=== PATIENT | female | born 1990 | race Caucasian/White ===

== ENCOUNTER 2017-09-01 19:53 | Inpatient (IN) | payer OTHER ==
[~2017-09-01] VITALS: Ht 167.6 cm; Wt 78.0 kg
[~2017-09-01 19:53] MED LIST: AMOX875T3 PO; IBUP1CAP PO; LEVO88TA3 PO; MELA3TAB PO
[2017-09-01 21:02] LABS: HEMATOCRIT 38.2 % (37-47); HEMOGLOBIN 13.5 g/dL (12.0-16.0); MEAN CELL VOLUME 90.1 fL (80-100); MEAN CORPUSCULAR HEMOGLOBIN 31.8 pg (25-34); MEAN CORPUSCULAR HGB CONC 35.3 g/dl (32-36); MEAN PLATELET VOLUME 10.3 fL (7.4-10.4); PLATELET COUNT 204 K/uL (130-400); RED CELL DISTRIBUTION WIDTH CV 13.3 % (11.5-14.5); RED CELL DISTRIBUTION WIDTH SD 43.7 fL (36.4-46.3); WHITE BLOOD COUNT 11.66 K/uL (4.8-10.8)
[2017-09-01] MEDS ORDERED: MISOPROSTOLTAB 50 MCG TAB PO ONE (21:15)
[2017-09-01] MEDS ORDERED: PRENTAB26 PO (21:45)
[2017-09-01 21:47] VITALS: Ht 167.6 cm; Wt 78.0 kg
[2017-09-02] MEDS ORDERED: NURSING VERBAL MED ORDER ONE ×4 (00:30→13:15)
[2017-09-02] MEDS ORDERED: LACTATED RINGER'S 1000ML 1,000 ML IV SCH ×2 (01:00)
[2017-09-02] MEDS: BUTORPHANOL TARTRATE 1 MG/ML VIAL IV PRN ×2 (02:37→03:50)
[2017-09-02] MEDS ORDERED: OXYTOCIN 30 UNITS/500ML NSS IV ONE (03:04)
[2017-09-02] MEDS ORDERED: BUTORPHANOL TARTRATE 1 MG/ML VIAL ONE (05:10)
[2017-09-02] MEDS: LEVOTHYROXINE 125 MCG TAB PO SCH (05:23)
[2017-09-02] MEDS ORDERED: METHYLERGONOVINE MALEATE 0.2 MG/ML AMP ONE (10:04)
[2017-09-02] MEDS ORDERED: DIPHTHERIA/TETANUS/PERTUSSIS 0.5 ML SYR/VIAL IM. ONE (10:30)
[2017-09-02] MEDS ORDERED: OXYCODONE/ACETAMINOPHEN 5-325 TAB PO PRN (10:30)
[2017-09-02] MEDS ORDERED: ACETAMINOPHEN/CODEINE 300/30MG TAB PO PRN ×2 (10:30)
[2017-09-02] MEDS ORDERED: METHYLERGONOVINE MALEATE 0.2 MG/ML AMP IM ONE (10:30)
[2017-09-02] MEDS ORDERED: LANOLIN OINT EXT PRN (10:30)
[2017-09-02] MEDS ORDERED: OXYTOCIN INJ 10 UNITS/ML VIAL IM ONE (10:30)
[2017-09-02] MEDS ORDERED: BENZOCAINE 20% AER SPR 82.5 GM CAN EXT PRN (10:30)
[2017-09-02] MEDS ORDERED: ACETAMINOPHEN 325 MG TAB PO PRN (10:30)
[2017-09-02] MEDS ORDERED: SUPERCREAM 0.870 % 15GM JAR EXT PRN (10:30)
[2017-09-02] MEDS ORDERED: HYDROCORTISONE ACETATE 25 MG SUPP PR PRN (10:30)
[2017-09-02] MEDS: IBUPROFEN 600 MG TAB PO PRN (11:25)
[2017-09-02 12:50] VITALS: BP 110/62; PULSE 64; TEMP 36.5
[2017-09-02 15:30] VITALS: BP 107/72; PULSE 69; TEMP 37.1
[2017-09-02 20:05] VITALS: BP 95/57; PULSE 67; TEMP 37
[2017-09-02] MEDS: DOCUSATE SODIUM 100 MG CAP PO SCH (20:17)
[2017-09-03 00:10] VITALS: BP 95/59; PULSE 71; TEMP 37.2
[2017-09-03] MEDS: IBUPROFEN 600 MG TAB PO PRN ×4 (02:21→23:55)
[2017-09-03 04:10] VITALS: BP 89/52; PULSE 65; TEMP 37
[2017-09-03] MEDS: LEVOTHYROXINE 125 MCG TAB PO SCH (04:23)
[2017-09-03 06:01] LABS: HEMATOCRIT 33.9 % (37-47); HEMOGLOBIN 11.7 g/dL (12.0-16.0)
[2017-09-03 08:01] VITALS: BP 97/58; PULSE 64; TEMP 36.7; O2SAT 97
[2017-09-03] MEDS: PRENATAL VITAMIN TAB PO SCH (08:52)
[2017-09-03] MEDS: FERROUS SULFATE 325 MG TAB PO SCH (08:53)
[2017-09-03] MEDS: DOCUSATE SODIUM 100 MG CAP PO SCH ×2 (08:58→20:22)
[2017-09-03 11:01] VITALS: BP 101/68; PULSE 64; TEMP 36.6; O2SAT 95
--- NOTE | 2017-09-03 13:07 | Progress Note ---
Subjective Sep 03, 2017. Subjective conversation w/ patient Ambulation: ambulating normally Voiding: no voiding problems Passing Gas: Yes Diet Tolerance: Regular Diet Lochia: Small Feeding Type: Breast Feeding Review of Systems Constitutional: + fever Objective Vital Signs Date Time Temp Pulse Resp B/P (MAP) Pulse Ox O2 Delivery O2 Flow Rate FiO2 09/03/17 11:01 36.6 64 16 101/68 (79) 95 Room Air 09/03/17 08:01 36.7 64 14 97/58 (71) 97 Room Air 09/03/17 07:20 Room Air 09/03/17 04:10 37.0 65 16 89/52 (64) Room Air 09/03/17 00:10 Room Air 09/03/17 00:10 37.2 71 16 95/59 (71) Room Air 09/02/17 20:05 37.0 67 18 95/57 (70) Room Air 09/02/17 15:30 Room Air 09/02/17 15:30 37.1 69 20 107/72 (84) Room Air Physical Exam General Appearance: WELL-APPEARING Fundus: Firm, Non-Tender Extremities: no pedal edema, no calf tenderness Laboratory Results Last 24 Hours Test 09/03/17 05:38 Hemoglobin 11.7 g/dL Hematocrit 33.9 % Assessment and Plan Problem List Medical Problems: (1) Acute headache Status: Acute (2) Hypothyroidism Status: Chronic (3) Left otitis media Status: Acute Post- Day#: 1
[2017-09-03 15:30] VITALS: BP 100/64; PULSE 68; TEMP 37.2
[2017-09-03] MEDS ORDERED: BISACODYL 5 MG TABEC PO SCH (20:00)
[2017-09-03 23:45] VITALS: BP 107/73; PULSE 62; TEMP 36.9
[2017-09-04] MEDS: LEVOTHYROXINE 125 MCG TAB PO SCH (03:57)
[2017-09-04] MEDS ORDERED: BISACODYL 10 MG SUPP PR PRN (07:00)
[2017-09-04 08:00] VITALS: BP 108/73; PULSE 79; TEMP 36.9
[2017-09-04] MEDS: DOCUSATE SODIUM 100 MG CAP PO SCH (08:16)
[2017-09-04] MEDS: FERROUS SULFATE 325 MG TAB PO SCH (08:17)
[2017-09-04] MEDS: PRENATAL VITAMIN TAB PO SCH (08:17)
--- NOTE | 2017-09-04 09:09 | Progress Note ---
Subjective Sep 04, 2017. Subjective conversation w/ patient Ambulation: ambulating normally Voiding: no voiding problems Passing Gas: Yes Diet Tolerance: Regular Diet Lochia: Small Feeding Type: Breast Feeding Review of Systems Constitutional: + fever Objective Vital Signs Date Time Temp Pulse Resp B/P (MAP) Pulse Ox O2 Delivery O2 Flow Rate FiO2 09/04/17 08:10 Room Air 09/04/17 08:00 36.9 79 20 108/73 (85) Room Air 09/03/17 23:45 Room Air 09/03/17 23:45 36.9 62 20 107/73 (84) Room Air 09/03/17 15:30 Room Air 09/03/17 15:30 37.2 68 20 100/64 (76) Room Air 09/03/17 11:01 36.6 64 16 101/68 (79) 95 Room Air Physical Exam General Appearance: WELL-APPEARING Abdomen: non tender Fundus: Firm, Non-Tender Extremities: no pedal edema, no calf tenderness Assessment and Plan Problem List Medical Problems: (1) Acute headache Status: Acute (2) Hypothyroidism Status: Chronic (3) Left otitis media Status: Acute Post- Day#: 2
--- NOTE | 2017-09-04 09:11 | Discharge Instructions ---
Discharge Instructions Date of Service Sep 04, 2017. Admission Reason for Admission: Check Rupture Of Membranes Discharge Discharge Diagnosis / Problem: ruptured membranes Discharge Goals Goal(s): Routine recovery after delivery Activity Recommendations Activity Limitations: as noted below ACTIVITY RECOMMENDATIONS: * Gradual return to full activity over the next 2-3 weeks. * No lifting - nothing heavier than baby over the next 2-3 weeks. * Do not engage in vigorous exercise, sexual activity or sports until cleared by your physician. * Do not drive or operate any motorized equipment until cleared by your physician. * You may shower/bathe daily. DIET: Resume Previous Diet If Breast-feeding: * Increase caloric intake by 500 calories, eat 3 well balanced meals, 2 high protein snacks a day and drink 6-8 8oz. glasses of fluid per day. BREAST CARE: If you are not breast feeding: * Wear a supportive bra 24 hours a day for one to two weeks. * Avoid stimulating your breasts and nipples as much as possible during the first few weeks after delivery. * When taking a shower, have the warm water hit your back, not breasts. * When your breasts feel full, apply ice packs. Usually three to four times a day helps ease the discomfort. * Take a mild pain medication (Tylenol / Motrin) when you are uncomfortable. If breast feeding: * Use breast milk to lubricate nipples. Lansinoh cream may be used for sore nipples. You do not need to remove cream prior to breast feeding. If using a different brand of cream, check the label for directions regarding removal of cream prior to nursing. * Wear a supportive bra. * If having problems with breasts or breast feeding, call a learning consultant or your health care provider. OVER THE COUNTER MEDICATION: * For discomfort or pain, you may use Acetaminophen (Tylenol), Ibuprofen (Advil ), or Naproxen (Aleve) following the package directions. * For constipation you may use Colace following the package directions. SPECIAL CARE INSTRUCTIONS: * Vaginal rest (no tampons, douching, intercourse) until after doctor 's visit. * control as discussed with doctor. * Verbalizes understanding of car seat law as reviewed with patient nursing. * Car Seat hand-out given and reviewed with patient by nursing. * Shaken baby information reviewed with patient by nursing. Call you doctor if: * Temperature greater than or equal to 100.4 degrees F or 38.0 degrees C. Take your temperature twice daily for a week. * Bleeding becomes heavier than the heaviest part of your period - saturating a sanitary pad within an hour. * Passing large clots. * Bleeding has a foul smelling odor. * Signs and symptoms of phlebitis: leg pain, warm, red or swollen area on leg. * "Baby Blues" lasting longer than two weeks. ++ If you have had a and incision has increased pain, redness, swelling, presence of any drainage, or if the incision starts to open up. If you have any questions or concerns, call your health care practitioner at [phone]. FOLLOW-UP VISIT: Please call the office at to schedule a 6 week examination. . Current Hospital Diet ACTIVITY RECOMMENDATIONS: * Gradual return to full activity over the next 2-3 weeks. * No lifting - nothing heavier than baby over the next 2-3 weeks. * Do not engage in vigorous exercise, sexual activity or sports until cleared by your physician. * Do not drive or operate any motorized equipment until cleared by your physician. * You may shower/bathe daily. DIET: Resume Previous Diet If Breast-feeding: * Increase caloric intake by 500 calories, eat 3 well balanced meals, 2 high protein snacks a day and drink 6-8 8oz. glasses of fluid per day. BREAST CARE: If you are not breast feeding: * Wear a supportive bra 24 hours a day for one to two weeks. * Avoid stimulating your breasts and nipples as much as possible during the first few weeks after delivery. * When taking a shower, have the warm water hit your back, not breasts. * When your breasts feel full, apply ice packs. Usually three to four times a day helps ease the discomfort. * Take a mild pain medication (Tylenol / Motrin) when you are uncomfortable. If breast feeding: * Use breast milk to lubricate nipples. Lansinoh cream may be used for sore nipples. You do not need to remove cream prior to breast feeding. If using a different brand of cream, check the label for directions regarding removal of cream prior to nursing. * Wear a supportive bra. * If having problems with breasts or breast feeding, call a learning consultant or your health care provider. OVER THE COUNTER MEDICATION: * For discomfort or pain, you may use Acetaminophen (Tylenol), Ibuprofen (Advil ), or Naproxen (Aleve) following the package directions. * For constipation you may use Colace following the package directions. SPECIAL CARE INSTRUCTIONS: * Vaginal rest (no tampons, douching, intercourse) until after doctor 's visit. * control as discussed with doctor. * Verbalizes understanding of car seat law as reviewed with patient nursing. * Car Seat hand-out given and reviewed with patient by nursing. * Shaken baby information reviewed with patient by nursing. Call you doctor if: * Temperature greater than or equal to 100.4 degrees F or 38.0 degrees C. Take your temperature twice daily for a week. * Bleeding becomes heavier than the heaviest part of your period - saturating a sanitary pad within an hour. * Passing large clots. * Bleeding has a foul smelling odor. * Signs and symptoms of phlebitis: leg pain, warm, red or swollen area on leg. * "Baby Blues" lasting longer than two weeks. ++ If you have had a and incision has increased pain, redness, swelling, presence of any drainage, or if the incision starts to open up. If you have any questions or concerns, call your health care practitioner at [phone]. FOLLOW-UP VISIT: Please call the office at to schedule a 6 week examination. Patient's current hospital diet: Regular Diet Discharge Diet Recommended Diet: Regular Diet Pending Studies Studies pending at discharge: no Medical Emergencies . Who to Call and When: Medical Emergencies: If at any time you feel your situation is an emergency, please call 911 immediately. . Non-Emergent Contact Non-Emergency issues call your: Replenisher Call Non-Emergent contact if: temperature is above 100.5 . . "Provider Documentation" section prepared by Akhil Brooks. . VTE Core Measure Inpt VTE Proph given/why not?: Treatment not indicated
[2017-09-04 11:00] VITALS: BP_DIAS 73; PULSE 79; TEMP 36.9
[2017-09-04] MEDS: IBUPROFEN 600 MG TAB PO PRN (11:41)
== END 2017-09-04 13:05 | disposition home or self-care (01) | DRG 775 ==
LOC: C.OPB 19:53 → C.LD 19:53 → C.OPB 20:41 → C.LD 20:41 → C.OBG 09-02 12:48
PROVIDERS: ADMIT Obstetrics & Gynecology; ATTEND Obstetrics & Gynecology
PROC: 0KQM0ZZ Repair Perineum Muscle, Open Approach (ICD-10-PCS; principal; 2017-09-02)
PROC: 10E0XZZ Delivery of Products of Conception, External Approach (ICD-10-PCS; principal; 2017-09-02)
DX: O99.283 Endocrine, nutritional and metabolic diseases complicating pregnancy, third trimester (principal); O70.1 Second degree perineal laceration during delivery; E03.9 Hypothyroidism, unspecified; Z37.0 Single live birth; Z3A.40 40 weeks gestation of pregnancy

== ENCOUNTER 2020-01-11 00:54 | Inpatient (IN) ==
--- OUTSIDE RECORDS SUMMARY | 2020-01-11 00:57 | External Medical Summary | Continuity of Care Document ---
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 Start: 09-Nov-2017 Refills: 0 Levothyroxine Sodium 100 MCG Oral Tablet; 100 mcg daily Veronica Wray Start: 09-Nov-2017 Quantity: 90 Refills: 3 Procedures Procedures not documented Immunizations Immunizations not documented Family History Mother Family history of hypertension (V17.49) (Z82.49) Status: Act elroy Family history of hyperlipidemia (V18.19) (Z83.438) Status: Active Grandmother Family history of hypertension (V17.49) (Z82.49) Status: Act elroy Father Family history of type C viral hepatitis (V18.8) (Z83.1) Sta tus: Active aunt Family history of cystic fibrosis (V18.19) (Z83.49) Status: Active Family history of Justin thyroiditis (V18.19) (Z83.49) St atus: Active Social History - Smoking Status Never smoked tobacco Plan of Treatment Planned Observations Planned Goals not documented Results No Known Results Results not documented
[2020-01-11] MEDS ORDERED: LACTATED RINGER'S 1,000 ML IV PRN (01:45)
[2020-01-11] MEDS ORDERED: OXYTOCIN 30 UNITS/500 ML BAG IV PRN ×2 (01:45→05:08)
[2020-01-11 02:04] LABS: Hematocrit (blood only) 37.1 % (37-47); Hemoglobin 12.6 g/dL (12.0-16.0); Mean Corpuscular Hemoglobin 30.6 pg (25-34); Mean Platelet Volume 10.2 fL (7.4-10.4); Platelet Count 165 K/uL (130-400); RDW Coefficient of Variation 13.7 % (11.5-14.5); RDW Standard Deviation 44.6 fL (36.4-46.3); Red Blood Count 4.12 M/uL (4.2-5.4); White Blood Count 11.06 K/uL (4.8-10.8)
[2020-01-11] MEDS ORDERED: BUTORPHANOL TARTRATE 1 MG/ML VIAL IV ONE (02:46)
[2020-01-11] MEDS ORDERED: BUTORPHANOL TARTRATE 1 MG/ML VIAL ONE (02:48)
[2020-01-11] MEDS ORDERED: BUTORPHANOL TARTRATE 1 MG/ML VIAL IV STA (04:14)
[2020-01-11] MEDS ORDERED: LIDOCAINE/EPINEPHRINE 1% 20 ML VIAL ONE (04:45)
[2020-01-11] MEDS ORDERED: METHYLERGONOVINE MALEATE 0.2 MG/ML AMP ONE (05:05)
[2020-01-11] MEDS ORDERED: ACETAMINOPHEN W/CODEINE #3 1 TAB PO PRN (05:08)
[2020-01-11] MEDS ORDERED: METHYLERGONOVINE MALEATE 0.2 MG/ML AMP IM ONE (05:08)
[2020-01-11] MEDS ORDERED: ACETAMINOPHEN 325 MG TAB PO PRN (05:08)
[2020-01-11] MEDS ORDERED: SUPERCREAM 0.870% 15 GM JAR EXT PRN (05:08)
[2020-01-11] MEDS ORDERED: DIPHTHERIA/TETANUS/PERTUSSIS 0.5 ML SYR/VIAL IM ONE (05:08)
[2020-01-11] MEDS ORDERED: BENZOCAINE 20% AER SPR 82.5 GM CAN EXT PRN (05:08)
[2020-01-11] MEDS ORDERED: HYDROCORTISONE ACETATE 25 MG SUPP PR PRN (05:08)
[2020-01-11] MEDS ORDERED: OXYCODONE/ACETAMINOPHEN 5mg/325mg TAB PO PRN (05:08)
[2020-01-11] MEDS ORDERED: bisacodyL 10 MG SUPP PR PRN (05:08)
--- NOTE | 2020-01-11 06:09 | Operative Report (OR) ---
DATE OF OPERATION: 01/11/2020 DELIVERY NOTE She is a 1, para 2, 1 first trimester spontaneous AB, blood type is A positive, group B strep negative. She was admitted at 40 weeks 6 days. She was scheduled to come in for induction, but her membranes ruptured at home. She came in, she had a spontaneous unstimulated labor and pushed out a live via direct occiput anterior position over an intact perineum. She did receive 2 doses of Stadol 1 mg each time for pain control. After delivery of the head, infant was suctioned through the mouth and the nose. Shoulders were delivered without difficulty. Cord was allowed to pulse for 1 minute, then it was clamped and cut. Cord blood was taken. She had a second-degree laceration in the midline clitoral laceration. The clitoral area was infiltrated with local, then the perineum was infiltrated with local. Vaginal mucosa was approximated out to beyond the hymenal ring with a running 2-0 Vicryl. A deep suture of 2-0 Vicryl was used to approximate the bulbocavernosus muscle, separate deep suture was used to approximate the perineal body. Then a running subcuticular suture was used to approximate the perineal skin edges. Following this, additional local was placed in the periclitoral area, this was local with epinephrine and we were able to use a 3-[address] one mattress suture that sutured the defect in the midline and stopped the bleeding. Following this, hemostasis was good. I did massage the uterus, clean out a bunch of clots, then I did give her an additional IM Methergine 0.2. Uterus contracted nicely. Hemostasis was good. The patient tolerated the procedure well and left the delivery room in good condition. I attest to the content of the Intraoperative Record and any orders documented therein. Any exception s are noted below.
[2020-01-11] MEDS: LEVOTHYROXINE SODIUM 100 MCG TABLET PO SCH (06:31)
[2020-01-11] MEDS: IBUPROFEN 600 MG TAB PO PRN ×3 (08:29→20:59)
[2020-01-11] MEDS: DOCUSATE SODIUM 100 MG CAP PO SCH ×2 (08:29→20:58)
[2020-01-11] MEDS: PRENATAL VITAMIN 1 TAB PO SCH (08:29)
[2020-01-12] MEDS: IBUPROFEN 600 MG TAB PO PRN ×2 (05:59→11:59)
[2020-01-12] MEDS: LEVOTHYROXINE SODIUM 100 MCG TABLET PO SCH (05:59)
[2020-01-12 06:54] LABS: Hematocrit (blood only) 33.7 % (37-47); Hemoglobin 11.6 g/dL (12.0-16.0); Mean Corpuscular Hemoglobin 31.7 pg (25-34); Mean Corpuscular Hgb Conc 34.4 g/dL (32-36); Mean Corpuscular Volume 92.1 fL (80-100); Mean Platelet Volume 10.1 fL (7.4-10.4); Platelet Count 163 K/uL (130-400); RDW Coefficient of Variation 13.9 % (11.5-14.5); RDW Standard Deviation 46.5 fL (36.4-46.3); Red Blood Count 3.66 M/uL (4.2-5.4); White Blood Count 13.16 K/uL (4.8-10.8)
[2020-01-12] MEDS: PRENATAL VITAMIN 1 TAB PO SCH (08:38)
[2020-01-12] MEDS: DOCUSATE SODIUM 100 MG CAP PO SCH (08:38)
--- NOTE | 2020-01-12 10:49 | Obstetrical Progress Note ---
Date of Service January 12, 2020 Assessment & Plan Admission and Anticipated Discharge Date Admission Date: January 11, 2020 Physical Exam Physical Exam: abdomen soft and non tender no calf tenderness ambulating well vaginal bleeding scant hgb 11.6 Results & Data ([facility]) Vital Signs (Past 12 Hours) Vital Signs Temp Pulse Pulse Resp BP BP Pulse Ox 01/12/20 07:21 36.5 C 84 20 105/66 98 01/12/20 03:45 36.7 C 81 18 101/65 01/12/20 00:15 36.5 C 66 18 96/59 L 97
[2020-01-12] MEDS ORDERED: bisacodyL 5 MG TABEC PO SCH (20:00)
== END 2020-01-12 13:05 | disposition home or self-care (01) | DRG 807 ==
LOC: OPB 00:54 → EDSTATUS 00:54 → 4S1 00:57 → 4S2 08:00